=== PATIENT | female | born 1995 | race Two or more races ===

== ENCOUNTER 2017-02-03 03:04 | Emergency (ER) | payer OTHER ==
[2017-02-03 03:10] VITALS: BP 129/90; PULSE 116; RESP 18; TEMP 98.2; O2SAT 98
== END 2017-02-03 03:33 | disposition home or self-care (01) ==
LOC: ED 03:04
DX: J06.9 Acute upper respiratory infection, unspecified (principal)
CPT/HCPCS: 87430; 99282